=== PATIENT | male | born 1975 | race Caucasian/White ===

== ENCOUNTER 2017-06-25 18:59 | Emergency (ER) | payer SELFPAY ==
[~2017-06-25] VITALS: Ht 167.6 cm; Wt 80.0 kg
[2017-06-25 19:10] VITALS: Ht 167.6 cm; Wt 80.0 kg
== END 2017-06-25 22:44 | disposition left against medical advice (07) ==
LOC: FTE 18:59
DX: Z53.21 Procedure and treatment not carried out due to patient leaving prior to being seen by health care provider (principal)